=== PATIENT | male | born 1945 | race Caucasian/White ===

== ENCOUNTER 2019-10-16 07:32 | Outpatient (CLI) | payer OTHER, SELFPAY ==
[2019-10-16 08:18] LABS: Thyroid Stimulating Hormone 0.01 uIU/mL (0.27-4.20)
== END 2019-10-16 07:33 | disposition home or self-care (01) ==
LOC: LAB 07:36
PROVIDERS: Family Provider Family Medicine; Visit Provider Internal Medicine Endocrinology, Diabetes & Metabolism
DX: Z01.89 Encounter for other specified special examinations (principal); Z79.899 Other long term (current) drug therapy
CPT/HCPCS: 84443

== ENCOUNTER → 2020-11-04 15:07 | Outpatient (BNVA) | payer MEDICARE, SELFPAY | PROVIDERS: Family Provider Family Medicine; Visit Provider Nurse Practitioner Family | DX: R30.0 Dysuria (principal) | CPT/HCPCS: 81000 ==

== ENCOUNTER → 2022-02-03 10:05 | Outpatient (BNVA) | payer MEDICARE, SELFPAY | PROVIDERS: Family Provider Family Medicine; Visit Provider Family Medicine | DX: E87.6 Hypokalemia (principal); Z09 Encounter for follow-up examination after completed treatment for conditions other than malignant neoplasm; L08.9 Local infection of the skin and subcutaneous tissue, unspecified | CPT/HCPCS: 80048 ==

== ENCOUNTER 2022-08-03 07:21 | Outpatient (CLI) | payer OTHER, SELFPAY ==
[2022-08-03 08:43] LABS: Prostate Specific AG Urology 8.79 ng/mL (0-4)
== END 2022-08-03 07:22 | disposition home or self-care (01) ==
PROVIDERS: PCP Family Medicine; Visit Provider Urology
DX: R97.20 Elevated prostate specific antigen [PSA] (principal)
CPT/HCPCS: 36415; 84153

== ENCOUNTER → 2022-08-06 09:14 | Outpatient (BNVA) | payer OTHER, SELFPAY | PROVIDERS: PCP Family Medicine; Visit Provider Urology | DX: R97.20 Elevated prostate specific antigen [PSA] (principal) | CPT/HCPCS: 51741; 51798; 81003; 99214 ==

== ENCOUNTER → 2022-08-09 13:41 | Outpatient (BNVA) | payer MEDICARE, SELFPAY | PROVIDERS: PCP Family Medicine; Visit Provider Internal Medicine | DX: E05.90 Thyrotoxicosis, unspecified without thyrotoxic crisis or storm (principal); E78.5 Hyperlipidemia, unspecified; R73.03 Prediabetes; E05.00 Thyrotoxicosis with diffuse goiter without thyrotoxic crisis or storm | CPT/HCPCS: 36415; 84439; 84443; 84480; 99204 ==

== ENCOUNTER → 2022-11-10 14:34 | Outpatient (BNVA) | payer MEDICARE, SELFPAY | PROVIDERS: PCP Family Medicine; Visit Provider Internal Medicine | DX: E05.90 Thyrotoxicosis, unspecified without thyrotoxic crisis or storm (principal); E05.00 Thyrotoxicosis with diffuse goiter without thyrotoxic crisis or storm; E78.5 Hyperlipidemia, unspecified; R73.03 Prediabetes | CPT/HCPCS: 36415; 84439; 84443; 84480; 86376; 86800; 99214 ==

== ENCOUNTER → 2023-11-08 10:55 | Outpatient (BNVA) | payer MEDICARE, SELFPAY | PROVIDERS: PCP Family Medicine; Visit Provider Internal Medicine | DX: E78.5 Hyperlipidemia, unspecified (principal); E05.90 Thyrotoxicosis, unspecified without thyrotoxic crisis or storm; R73.03 Prediabetes; E05.00 Thyrotoxicosis with diffuse goiter without thyrotoxic crisis or storm; I10 Essential (primary) hypertension | CPT/HCPCS: 36415; 80053; 80061; 82044; 83036; 84439; 84443; 84480; 99214 ==

== ENCOUNTER 2023-11-15 08:50 | Outpatient (CLI) | payer MEDICARE, SELFPAY ==
[2023-11-15 10:11] LABS: Potassium 3.2 mmol/L (3.5-5.1)
== END 2023-11-15 08:51 | disposition home or self-care (01) ==
PROVIDERS: PCP Family Medicine; Visit Provider Internal Medicine
DX: E87.6 Hypokalemia (principal)
CPT/HCPCS: 36415; 84132

== ENCOUNTER 2023-12-01 09:14 | Outpatient (CLI) | payer MEDICARE, SELFPAY ==
[2023-12-01 10:10] LABS: Potassium 3.7 mmol/L (3.5-5.1)
== END 2023-12-01 09:15 | disposition home or self-care (01) ==
LOC: LAB 09:17
PROVIDERS: PCP Family Medicine; Visit Provider Family Medicine
DX: E87.6 Hypokalemia (principal)
CPT/HCPCS: 36415; 84132

== ENCOUNTER 2024-01-12 07:13 | Emergency (ER) | payer OTHER, SELFPAY ==
[2024-01-12] VITALS (12 sets, daily range): BP systolic 154–199; BP diastolic 86–111; PULSE 78–123; RESP 13–21; TEMP 36.5; O2SAT 95–98; BMI 25.3
[2024-01-12 08:23] LABS: Basophils % 0.3 %; Eosinophils # 0.2 10^3/uL (0.0-0.8); Hematocrit 49.8 % (37-53); Lymphocytes # 1.9 10^3/uL (0.8-4.8); Lymphocytes % 21.6 %; Mean Corpuscular HGB Conc 33.5 g/dL (30-55); Mean Corpuscular Hemoglobin 29.9 pg (27-33); Mean Corpuscular Volume 89.1 fl (82-101); Mean Platelet Volume 11.2 fL (7.4-10.4); Monocytes # 0.7 10^3/uL (0.2-0.9); Monocytes % 7.7 %; Neutrophils # 5.84 10^3/uL (1.8-7.7); Neutrophils % 68.1 %; Nucleated Red Blood Cells % 0 %; Platelet Count 216 10^3/cmm (157-399); Red Blood Count 5.59 10^6/uL (3.85-5.65); White Blood Count 8.58 10^3/uL (3.29-11.43)
--- NOTE | 2024-01-12 08:34 | XR_ITS ---
WS: [id number] Portable AP upright chest, 01/12/2024 Clinical Data: dyspnea/cough Comparison: Two-view chest, 05/16/2017 Findings: No nodules, masses or effusions are seen. The heart is normal. The pulmonary vascularity is not increased. No pneumonia or pneumothorax is seen. The aortic arch and descending thoracic aorta s how tortuosity. There are monitor leads on the chest wall. XR/XR chest 1V portable [id number] Impression: Atherosclerosis.
--- NOTE | 2024-01-12 08:34 | ECG_ITS ---
[facility] Test Date: 2024-01-12 Pat Name: Yoselyn Pacheco Department: Room: Gender: Male [employer] Driver: : 1945 Requested By: Curtis Villatoro Order Number: [id number] Renita MD: Jad Nj M.D. Measurements Intervals [place] Rate: 97 P: 62 OH: 172 QRS: -22 QRSD: 98 T: 63 QT: 344 QTc: 437 Interpretive Statements SINUS RHYTHM BORDERLINE LEFT AXIS DEVIATION [QRS AXIS < -20] NONSPECIFIC T-WAVE ABNORMALITY No previous ECG available for comparison Electronically Signed On 01-12-2024 17:10:06 CDT by Jad Nj M.D. [id number]
[2024-01-12 08:40] LABS: Alanine Aminotransferase 14 U/L (0-41); Albumin Level 4.1 g/dL (3.5-5.2); Alkaline Phosphatase 74 U/L (40-130); Anion Gap 15.8 (5-19); Aspartate Amino Transferase 23 U/L (0-40); Blood Urea Nitrogen 14 mg/dL (8-23); Calcium 9.3 mg/dL (8.5-10.5); Carbon Dioxide 25 mmol/L (22-29); Chloride 103 mmol/L (98-107); Creatinine Clr Calc Pharmacy 54.9284; Globulin 3.6 g/dL (1.3-4.6); Glucose 128 mg/dL (65-115); Osmolality Calculated 294 mOsm/kg (285-295); Sodium 141 mmol/L (136-145); Total Bilirubin 0.4 mg/dL (0.15-1.2); Total Protein 7.7 g/dL (6.6-8.7)
[2024-01-12 08:42] LABS: Potassium 2.8 mmol/L (3.5-5.1)
[2024-01-12] MEDS: potassium chloride oral liq 20 mEq/15 mL UDC 40 MEQ PO (09:06)
--- NOTE | 2024-01-12 09:10 | ED_ITS ---
HPI - General Adult 2 General: Chief complaint: General Medical Stated complaint: high bp Time Seen by Provider: 01/12/24 07:26 History of Present Illness: 79-year-old male presents to the emergen cy room with complaints of elevated blood pressure. Has been running higher than normal the last week he had in the past been on several blood pressure medications had [facility] told [facility] did not need quite as many and they were stopped. He currently is on amlodipine on his written medication list it is 20 mg daily although on March with the list that is 5 mg daily and that he also states he is on lisinopril 10 mg daily he stopped taking the potassium supplement they gave him because it made him feel sick. He states in the past he was on a higher dose of lisinopril along with hydrochlorothiazide. Denies chest pain or shortness of breath at this time. Associated symptoms: Deny chest pain, dyspnea or rash Review of Systems 2 Const: Denies: fever(s) or chills Card: Denies: chest pain Resp: Denies: dyspnea GI: Denies: abdominal pain : Denies: dysuria, urinary frequency or urinary urgency Musc: Denies: neck pain or back pain Skin/Breast: Denies: rash PFSH ED 2 PFSH: Medical History Elevated PSA Hyperthyroidism Family History Mother , AT AGE 100 No problems noted. Father , AT AGE 44 Heart disease Cirrhosis of liver Social History Smoking and tobacco/nicotine status: never used tobacco/nicotine Second hand smoke exposure: No Alcohol intake: never Substance/Drug Use: never Lives independently: Yes Marital status: Current occupational status: retired Current gender identity: Male Physical Exam 2 Const: COMMON NORMALS: no acute distress GENERAL APPEARANCE: cooperative and comfortable ORIENTATION/CONSCIOUSNESS: Yes awake, Yes oriented to person, Yes oriented to place and Yes oriented to time HENMT: COMMON NORMALS: normocephalic, atraumatic and hearing grossly normal bilaterally HEAD & SCALP: normocephalic and atraumatic Resp: COMMON NORMALS: normal respiratory effort, No retractions, No use of accessory muscles and clear to auscultation bilaterally AUSCULTATION: clear to auscultation bilaterally Cardio: COMMON NORMALS: regular rate, regular rhythm and No murmurs present (Cardio) RATE: regular rate RHYTHM: regular rhythm GI: COMMON NORMALS: Soft to palpation and No hepatosplenomegaly present A USCULTATION: Yes normoactive bowel sounds PALPATION: Yes Soft to palpation, No Tenderness to palpation present (GI), No Guarding due to palpation present (GI) and Yes No hepatosplenomegaly present Extremity: COMMON NORMALS: normal to inspection, capillary refill normal, no clubbing, cyanosis or edema, no calf tenderness and no pedal edema Neuro: SENSORIUM/ORIENTATION: Yes oriented to person, Yes oriented to place and Yes oriented to time Skin: COMMON NORMALS: no rashes or lesions noted GENERAL SKIN EXAM: no rashes or lesions noted Course 2 Vital Signs: Vital signs: Vital Signs Temperature 97.7 F 01/12/24 07:16 Pulse Rate 86 01/12/24 12:00 Respiratory Rate 13 01/12/24 12:00 Blood Pressure 154/87 01/12/24 12:45 Pulse Oximetry 95 01/12/24 12:00 Oxygen Delivery Me thod Room Air 01/12/24 07:16 MDM - General Adult Medical Decision Making Blood pressure improved with medications given will discharge patient home add metoprolol to tartrate 25 twice daily first dose given in the emergency room. Continue all of his other medications. Labs and imaging reviewed he was given a potassium supplement in the emergency room 40 p.o. by mouth level liquid potassium and encouraged to increase his oral potassium to 10 mill equivalents twice daily follow-up with his primary care doctor to recheck BMP and reevaluate blood pressure with medication changes given today. Medical Records I reviewed the patient's medical records. Lab Data I reviewed the patient's lab results. 01/12/24 08:16 01/12/24 08:16 Radiology Impressions Chest X-Ray 01/12/24 08:34 Impression: Atherosclerosis. Laboratory Results WBC 8.58 10^3/uL (3.29-11.43) 01/12/24 08:16 RBC 5.59 10^6/uL (3.85-5.65) 01/12/24 08:16 Hgb 16.70 g/dL (11.27-16.99) 01/12/24 08:16 Hct 49.8 % (37-53) 01/12/24 08:16 MCV 89.1 fl (82-101) 01/12/24 08:16 MCH 29.9 pg (27-33) 01/12/24 08:16 MCHC 33.5 g/dL (30-55) 01/12/24 08:16 RDW 13.0 % (12.1-15.1) 01/12/24 08:16 Plt Count 216 10^3/cmm (157-399) 01/12/24 08:16 MPV 11.2 fL (7.4-10.4) H 01/12/24 08:16 Neut % (Auto) 68.1 % 01/12/24 08:16 Lymph % (Auto) 21.6 % 01/12/24 08:16 [place] % (Auto) 7.7 % 01/12/24 08:16 Eos % (Auto) 2.0 % 01/12/24 08:16 Baso % (Auto) 0.3 % 01/12/24 08:16 Neut # (Auto) 5.84 10^3/uL (1.8-7.7) 01/12/24 08:16 Lymph # (Auto) 1.9 10^3/uL (0.8-4.8) 01/12/24 08:16 [place] # (Auto) 0.7 10^3/uL (0.2-0.9) 01/12/24 08:16 Eos # (Auto) 0.2 10^3/uL (0.0-0.8) 01/12/24 08:16 Baso # (Auto) 0.0 10^3/uL (0.0-0.1) 01/12/24 08:16 Nucleated RBC % (auto) 0 % 01/12/24 08:16 Nucleated RBCs # 0.0 /100WBC 01/12/24 08:16 Sodium 141 mmol/L (136-145) 01/12/24 08:16 Potassium 2.8 mmol/L (3.5-5.1) L* 01/12/24 08:16 Chloride 103 mmol/L (98-107) 01/12/24 08:16 Carbon Dioxide 25 mmol/L (22-29) 01/12/24 08:16 Anion Gap 15.8 (5-19) 01/12/24 08:16 BUN 14 mg/dL (8-23) 01/12/24 08:16 Creatinine 1.1 mg/dL (0.7-1.2) 01/12/24 08:16 GFR Calculation Not Reportable 01/12/24 08:16 Glucose 128 mg/dL (65-115) H 01/12/24 08:16 Calculated Osmolality 294 mOsm/kg (285-295) 01/12/24 08:16 Calcium 9.3 mg/dL (8.5-10.5) 01/12/24 08:16 Total Bilirubin 0.4 mg/dL (0.15-1.2) 01/12/24 08:16 AST 23 U/L (0-40) 01/12/24 08:16 ALT 14 U/L (0-41) 01/12/24 08:16 Alkaline Phosphatase 74 U/L (40-130) 01/12/24 08:16 Total Protein 7.7 g/dL (6.6-8.7) 01/12/24 08:16 Albumin 4.1 g/dL (3.5-5.2) 01/12/24 08:16 Globulin 3.6 g/dL (1.3-4.6) 01/12/24 08:16 All radiology interpretation(s) finalized by discharge Discharge Plan Discharge Patient Disposition: Home Clinical Impression: HTN (hypertension), benign, Hypokalemia Condition: Stable Prescriptions: New metoprolol tartrate 25 mg tablet 25 mg PO BID Qty: 60 0RF No Action amlodipine 5 mg tablet 5 mg PO DAILY finasteride 5 mg tablet 5 mg PO DAILY rosuvastatin 10 mg tablet 10 mg PO DAILY lisinopril 10 mg tablet 10 mg PO DAILY 90 Days Qty: 90 1RF potassium chloride 10 mEq capsule, extended release 10 meq PO DAILY Qty: 90 2RF Discharge Orders: Discharge ED (Routine); Ordered 01/12/24 Ordered By: Curtis Johnson Referrals: Dianne Roman MD [Primary Care Provider] - Discharge Diet: Usual diet Discharge Activity: Increase activity as tolerated Patient Instructions: Opioid Safety, Pain Management Activity Restrictions/Additional Instructions: Thank you for choosing [facility] for your healthcare needs today. Please realize this is an emergency room and that we are providing you with a medical screening exam and this may not be complete and all inclusive of all the testing and or work up that you may need to determine your ailment or severity of your illness. It is very important that you follow up as instructed or that you return to the Emergency Department should you have concerns or if your condition changes or worsens in any way. Follow-up with your primary care doctor within the next week to reevaluate your blood pressure. You were given a new blood pressure medicine to take 1 pill twice a day. You were given the first dose this morning in the ER take another dose this evening. Your potassium was low in the emergency room it is very important that you take your potassium supplement that was prescribed to you recommend taking 1 pill twice a day until you see your primary care doctor and they can recheck your potassium. Coding Level of Care Code ED Special Projects Manager for Magdy Tipton
[2024-01-12] MEDS: metoprolol tartrate 25 mg Tablet PO (10:43)
[2024-01-12] MEDS: metoprolol tartrate 1 mg/1 mL SDV 5 mL 2.5 MG IVP (10:49)
[2024-01-12] MEDS: hyDRALAzine 20 mg/mL INJ 1 mL 10 MG IVP (11:35)
== END 2024-01-12 13:21 | disposition home or self-care (01) ==
PROVIDERS: Emergency Provider Family Medicine; PCP Family Medicine
DX: I10 Essential (primary) hypertension (principal); E87.6 Hypokalemia
CPT/HCPCS: 36415; 71045; 80053; 85025; 93005; 96374; 96375; 99285; J0360; J3490

== ENCOUNTER 2024-05-01 06:48 | Outpatient (CLI) | payer MEDICARE, SELFPAY ==
[2024-05-01 07:40] LABS: Alanine Aminotransferase 14 U/L (0-41); Albumin Level 4.1 g/dL (3.5-5.2); Alkaline Phosphatase 78 U/L (40-130); Anion Gap 14.1 (5-19); Aspartate Amino Transferase 18 U/L (0-40); Blood Urea Nitrogen 14 mg/dL (8-23); Calcium 8.8 mg/dL (8.5-10.5); Carbon Dioxide 29 mmol/L (22-29); Chloride 100 mmol/L (98-107); Chol HDL Ratio 3.56 mg/dL (1.0-5.00); Cholesterol 160 mg/dL (0-200); Estmated Average Glucose 120; Free T4 Free Thyroxine 1.42 ng/dL (0.82-1.77); Globulin 2.8 g/dL (1.3-4.6); Glucose 147 mg/dL (65-115); HDL Cholesterol 45 mg/dL (60-100); Hemoglobin A1C 5.8 % (4.0-6.0); LDL Cholesterol Calculated 93 mg/dL (50-129); LDL HDL Ratio 2.07 RATIO (0.00-3.22); Osmolality Calculated 293 mOsm/kg (285-295); Potassium 3.1 mmol/L (3.5-5.1); Sodium 140 mmol/L (136-145); Thyroid Stimulating Hormone 2.57 uIU/mL (0.27-4.20); Total Bilirubin 0.5 mg/dL (0.15-1.2); Total Protein 6.9 g/dL (6.6-8.7); Triglycerides 108 mg/dL (0-150)
[2024-05-01 09:00] LABS: Creatinine Urine, Random 37 mg/dL (39-259); Microalbum Creatinine Ratio Ur 27 mg/dL (0-20); Microalbumin Random Urine 1 ug/dL (0-20)
[2024-05-02 11:10] LABS: T3 Total 125 ng/dL (76-181)
== END 2024-05-01 06:49 | disposition home or self-care (01) ==
PROVIDERS: PCP Family Medicine; Visit Provider Internal Medicine
DX: E05.90 Thyrotoxicosis, unspecified without thyrotoxic crisis or storm (principal); E78.5 Hyperlipidemia, unspecified; R73.03 Prediabetes; E05.00 Thyrotoxicosis with diffuse goiter without thyrotoxic crisis or storm; I10 Essential (primary) hypertension
CPT/HCPCS: 36415; 80053; 80061; 82044; 83036; 84439; 84443; 84480

== ENCOUNTER → 2024-05-09 10:58 | Outpatient (BNVA) | payer MEDICARE, SELFPAY | PROVIDERS: PCP Family Medicine; Visit Provider Internal Medicine | DX: E78.5 Hyperlipidemia, unspecified; R73.03 Prediabetes; E05.00 Thyrotoxicosis with diffuse goiter without thyrotoxic crisis or storm; I10 Essential (primary) hypertension | CPT/HCPCS: 99214 ==

== ENCOUNTER 2024-05-10 06:37 | Outpatient (CLI) | payer MEDICARE, SELFPAY ==
[2024-05-10 07:45] LABS: Anion Gap 14.2 (5-19); Blood Urea Nitrogen 15 mg/dL (8-23); Calcium 9.1 mg/dL (8.5-10.5); Carbon Dioxide 29 mmol/L (22-29); Chloride 103 mmol/L (98-107); Glucose 137 mg/dL (65-115); Osmolality Calculated 299 mOsm/kg (285-295); Potassium 3.2 mmol/L (3.5-5.1); Sodium 143 mmol/L (136-145)
== END 2024-05-10 06:38 | disposition home or self-care (01) ==
PROVIDERS: PCP Family Medicine; Visit Provider Internal Medicine
DX: E87.6 Hypokalemia (principal)
CPT/HCPCS: 36415; 80048

== ENCOUNTER 2024-11-06 07:18 | Outpatient (CLI) | payer SELFPAY ==
[2024-11-06 08:03] LABS: Creatinine Urine, Random 98 mg/dL (39-259); Microalbumin Random Urine 4 ug/dL (0-20)
[2024-11-06 08:05] LABS: Alanine Aminotransferase 13 U/L (0-41); Albumin Level 4.2 g/dL (3.5-5.2); Alkaline Phosphatase 74 U/L (40-130); Anion Gap 13.3 (5-19); Aspartate Amino Transferase 20 U/L (0-40); Blood Urea Nitrogen 17 mg/dL (8-23); Calcium 9.1 mg/dL (8.5-10.5); Carbon Dioxide 29 mmol/L (22-29); Chloride 101 mmol/L (98-107); Chol HDL Ratio 5.42 mg/dL (1.0-5.00); Cholesterol 260 mg/dL (0-200); Glucose 139 mg/dL (65-115); HDL Cholesterol 48 mg/dL (60-100); LDL Cholesterol Calculated 172 mg/dL (50-129); LDL HDL Ratio 3.58 RATIO (0.00-3.22); Osmolality Calculated 294 mOsm/kg (285-295); Potassium 3.3 mmol/L (3.5-5.1); Sodium 140 mmol/L (136-145); Total Bilirubin 0.5 mg/dL (0.15-1.2); Total Protein 7.2 g/dL (6.6-8.7); Triglycerides 201 mg/dL (0-150)
[2024-11-06 08:06] LABS: Estmated Average Glucose 117; Hemoglobin A1C 5.7 % (4.0-6.0)
[2024-11-06 08:08] LABS: Microalbum Creatinine Ratio Ur 41 mg/dL (0-20)
[2024-11-06 08:29] LABS: Free T4 Free Thyroxine 1.36 ng/dL (0.82-1.77); T3 Free 3.1 PG/ML (2.0-4.4); Thyroid Stimulating Hormone 1.44 uIU/mL (0.27-4.20)
== END 2024-11-06 07:19 | disposition home or self-care (01) ==
LOC: LAB 07:19
PROVIDERS: PCP Family Medicine; Visit Provider Internal Medicine
DX: E05.90 Thyrotoxicosis, unspecified without thyrotoxic crisis or storm (principal); E78.5 Hyperlipidemia, unspecified; R73.03 Prediabetes; E05.00 Thyrotoxicosis with diffuse goiter without thyrotoxic crisis or storm; I10 Essential (primary) hypertension
CPT/HCPCS: 36415; 80048; 80053; 80061; 82044; 83036; 84439; 84443; 84481

== ENCOUNTER → 2024-12-21 08:53 | Outpatient (BNVA) | payer MEDICARE, SELFPAY | PROVIDERS: PCP Family Medicine; Visit Provider Internal Medicine | DX: E05.90 Thyrotoxicosis, unspecified without thyrotoxic crisis or storm (principal); E78.5 Hyperlipidemia, unspecified; R73.03 Prediabetes; E05.00 Thyrotoxicosis with diffuse goiter without thyrotoxic crisis or storm; R03.0 Elevated blood-pressure reading, without diagnosis of hypertension | CPT/HCPCS: 99214 ==

== ENCOUNTER → 2025-08-08 13:49 | Outpatient (BNVA) | payer MEDICARE, SELFPAY | PROVIDERS: PCP Family Medicine; Visit Provider Internal Medicine Endocrinology, Diabetes & Metabolism | DX: E05.00 Thyrotoxicosis with diffuse goiter without thyrotoxic crisis or storm (principal); E78.5 Hyperlipidemia, unspecified; R73.03 Prediabetes; R03.0 Elevated blood-pressure reading, without diagnosis of hypertension | CPT/HCPCS: 99213 ==